=== PATIENT | male | born 1975 | race Caucasian/White ===

== ENCOUNTER 2016-11-07 05:55 | Emergency (ER) | payer SELFPAY ==
[~2016-11-07] VITALS: Ht 172.7 cm; Wt 61.5 kg
[~2016-11-07 05:55] MED LIST: FLEXERIL10 MG PO; NAPROXEN500 MG PO
[2016-11-07] MEDS ORDERED: PERCOCET 5/31 TABLET PO (09:27)
[2016-11-07 09:44] VITALS: BP 115/73
== END 2016-11-07 09:45 | disposition home or self-care (01) ==
LOC: EME 05:55
DX: S83.91XA Sprain of unspecified site of right knee, initial encounter (principal); X50.9XXA Other and unspecified overexertion or strenuous movements or postures, initial encounter; Z88.6 Allergy status to analgesic agent; Z88.0 Allergy status to penicillin
CPT/HCPCS: 73564; 99281; 99283; J1170

== ENCOUNTER 2016-11-11 15:53 | Emergency (ER) | payer SELFPAY ==
[~2016-11-11] VITALS: Ht 172.7 cm; Wt 58.5 kg
[~2016-11-11 15:53] MED LIST changes: +PERCOCET 5/31 TABLET PO
[2016-11-11] MEDS ORDERED: PREDNISONE20 MG PO (18:24)
[2016-11-11 18:47] VITALS: BP 134/90
== END 2016-11-11 18:48 | disposition home or self-care (01) ==
LOC: EME 15:53
DX: M23.91 Unspecified internal derangement of right knee (principal); S83.421A Sprain of lateral collateral ligament of right knee, initial encounter; M76.51 Patellar tendinitis, right knee; F17.200 Nicotine dependence, unspecified, uncomplicated
CPT/HCPCS: 99281; 99284; J7512

== ENCOUNTER 2016-12-17 11:26 | Emergency (ER) | payer SELFPAY ==
[~2016-12-17] VITALS: Ht 172.7 cm; Wt 61.2 kg
[~2016-12-17 11:26] MED LIST changes: +PREDNISONE20 MG PO
[2016-12-17] MEDS ORDERED: PERCOCET 5/31 TABLET PO (12:55)
[2016-12-17] MEDS ORDERED: FLEXERIL10 MG PO (12:55)
[2016-12-17 13:09] VITALS: BP 127/92
== END 2016-12-17 13:10 | disposition home or self-care (01) ==
LOC: EME 11:26
DX: S43.402A Unspecified sprain of left shoulder joint, initial encounter (principal); X50.9XXA Other and unspecified overexertion or strenuous movements or postures, initial encounter; Z88.6 Allergy status to analgesic agent; Z88.0 Allergy status to penicillin
CPT/HCPCS: 73030; 99281; 99283

== ENCOUNTER 2017-05-28 21:27 | Emergency (ER) | payer OTHER ==
[~2017-05-28] VITALS: Ht 172.7 cm; Wt 60.9 kg
[2017-05-28] MEDS ORDERED: NORCO 5/3251 TABLET PO (23:16)
[2017-05-28 23:33] VITALS: BP 158/93
== END 2017-05-28 23:40 | disposition home or self-care (01) ==
LOC: EME 21:27
DX: S22.31XA Fracture of one rib, right side, initial encounter for closed fracture (principal); W11.XXXA Fall on and from ladder, initial encounter; Z72.0 Tobacco use
CPT/HCPCS: 71020; 99281; 99283

== ENCOUNTER 2017-06-06 19:15 | Emergency (ER) | payer OTHER ==
[~2017-06-06] VITALS: Ht 172.7 cm; Wt 62.5 kg
[~2017-06-06 19:15] MED LIST changes: +NORCO 5/3251 TABLET PO
[2017-06-06] MEDS ORDERED: NORCO 5/3251 TABLET PO (20:37)
[2017-06-06 20:51] VITALS: BP 151/88
== END 2017-06-06 21:10 | disposition home or self-care (01) ==
LOC: EXP 19:15 → EME 19:15 → EXP 21:10
DX: R07.89 Other chest pain (principal); M25.521 Pain in right elbow; F17.200 Nicotine dependence, unspecified, uncomplicated
CPT/HCPCS: 71020; 99281; 99284

== ENCOUNTER 2017-07-09 06:35 | Emergency (ER) | payer OTHER ==
[~2017-07-09] VITALS: Ht 172.7 cm; Wt 61.0 kg
[2017-07-09 06:47] VITALS: BP 144/95
== END 2017-07-09 09:20 | disposition home or self-care (01) ==
LOC: EME 06:35
PROC: 2W3CX1Z Immobilization of Right Lower Arm using Splint (ICD-10-PCS; principal; 2017-07-09)
DX: S67.21XA Crushing injury of right hand, initial encounter (principal); S60.221A Contusion of right hand, initial encounter; W20.8XXA Other cause of strike by thrown, projected or falling object, initial encounter; F17.210 Nicotine dependence, cigarettes, uncomplicated
CPT/HCPCS: 73130; 99281; 99284

== ENCOUNTER 2017-09-06 12:05 | Emergency (ER) | payer OTHER ==
[~2017-09-06] VITALS: Ht 172.7 cm; Wt 60.1 kg
[2017-09-06] MEDS ORDERED: INDOCIN50 MG PO (15:09)
[2017-09-06 15:18] VITALS: BP 114/92
== END 2017-09-06 15:18 | disposition home or self-care (01) ==
LOC: EME 12:05
DX: S46.002A Unspecified injury of muscle(s) and tendon(s) of the rotator cuff of left shoulder, initial encounter (principal); X50.9XXA Other and unspecified overexertion or strenuous movements or postures, initial encounter; M24.412 Recurrent dislocation, left shoulder; F17.200 Nicotine dependence, unspecified, uncomplicated
CPT/HCPCS: 73030; 99281; 99283

== ENCOUNTER 2017-12-17 15:56 | Emergency (ER) | payer BC ==
[~2017-12-17] VITALS: Ht 172.7 cm; Wt 58.4 kg
[~2017-12-17 15:56] MED LIST changes: +INDOCIN50 MG PO
[2017-12-17] MEDS ORDERED: PERCOCET 7.51 TABLET PO (20:30)
[2017-12-17 20:59] VITALS: BP 129/86
== END 2017-12-17 21:00 | disposition home or self-care (01) ==
LOC: EME 15:56
PROC: 2W39X1Z Immobilization of Left Upper Extremity using Splint (ICD-10-PCS; principal; 2017-12-17)
DX: S67.22XA Crushing injury of left hand, initial encounter (principal); W23.0XXA Caught, crushed, jammed, or pinched between moving objects, initial encounter; Z88.6 Allergy status to analgesic agent; Z88.0 Allergy status to penicillin
CPT/HCPCS: 73130; 99281; 99284; J2270

== ENCOUNTER 2017-12-21 13:00 | Emergency (ER) | payer SELFPAY ==
[~2017-12-21] VITALS: Ht 172.7 cm; Wt 54.1 kg
[~2017-12-21 13:00] MED LIST changes: +PERCOCET 7.51 TABLET PO
[2017-12-21] MEDS ORDERED: PERCOCET 7.51 TABLET PO (14:16)
[2017-12-21 14:33] VITALS: BP 138/82
== END 2017-12-21 14:33 | disposition home or self-care (01) ==
LOC: EME 13:00
DX: S60.222A Contusion of left hand, initial encounter (principal); W23.0XXA Caught, crushed, jammed, or pinched between moving objects, initial encounter; Z88.0 Allergy status to penicillin; Z88.6 Allergy status to analgesic agent
CPT/HCPCS: 99281; 99284

== ENCOUNTER 2017-12-26 11:35 | Emergency (ER) | payer OTHER ==
[~2017-12-26] VITALS: Ht 172.7 cm; Wt 55.7 kg
[2017-12-26] MEDS ORDERED: PERCOCET 5/31 TABLET PO (15:57)
[2017-12-26] MEDS ORDERED: VOLTAREN 1% GE100 GM TP (15:57)
[2017-12-26 16:20] VITALS: BP 135/74
== END 2017-12-26 16:29 | disposition home or self-care (01) ==
LOC: EME 11:35
DX: S60.222A Contusion of left hand, initial encounter (principal); M79.89 Other specified soft tissue disorders; W23.0XXA Caught, crushed, jammed, or pinched between moving objects, initial encounter; F17.200 Nicotine dependence, unspecified, uncomplicated; Z71.6 Tobacco abuse counseling; Z88.0 Allergy status to penicillin; Z88.6 Allergy status to analgesic agent
CPT/HCPCS: 73130; 99281; 99283

== ENCOUNTER 2018-06-06 15:16 | Emergency (ER) | payer OTHER ==
[~2018-06-06] VITALS: Ht 172.7 cm; Wt 56.6 kg
[~2018-06-06 15:16] MED LIST changes: +VOLTAREN 1% GE100 GM TP
[2018-06-06 16:17] LABS: HEMATOCRIT 48.4 % (38.0-50.0); HEMOGLOBIN 16.6 G/DL (12.5-16.6); MCHC 34.3 G/DL (30.0-36.0); MCV 90.3 FL (86-99); PLATELET COUNT 257 K/uL (156-360); RBC DIS.WIDTH-CV 13.2 % (11.8-14.6); RED BLOOD COUNT 5.36 M/uL (4.00-5.50)
[2018-06-06 16:24] LABS: CHLORIDE 103 mEq/L (99-109); POTASSIUM 4.1 mEq/L (3.7-5.4); SODIUM 138 mEq/L (136-147)
[2018-06-06 16:26] LABS: GLUCOSE 92 mg/dL (70-99)
[2018-06-06 16:30] LABS: CREATININE 0.9 mg/dL (0.6-1.3); GFR ESTIMATE (CALCULATED) > 59 mL/min/ (58.99-99999)
[2018-06-06 16:31] LABS: UREA NITROGEN (BUN) 14 mg/dL (9-23)
[2018-06-06 19:30] LABS: TROP-I INTERPRETATION NEGATIVE; TROPONIN-I < 0.01 ng/mL (0.0-0.30)
[2018-06-06] MEDS ORDERED: DILAUDID4 MG PO (20:20)
[2018-06-06 20:49] VITALS: BP 126/94
[2018-06-07 08:57] LABS: TREPONEMA ANTIBODY NEGATIVE (NEGATIVE)
== END 2018-06-06 20:50 | disposition home or self-care (01) ==
LOC: EME 15:16
PROVIDERS: Emergency Medicine; Physician Assistant
DX: M54.2 Cervicalgia (principal); R42 Dizziness and giddiness; Z88.0 Allergy status to penicillin; Z88.5 Allergy status to narcotic agent; Z88.6 Allergy status to analgesic agent; Z91.030 Bee allergy status
CPT/HCPCS: 70450; 70551; 80048; 82607; 84425 90; 84484; 85027; 86780; 93005; 99281; 99284; G0480; J2270

== ENCOUNTER 2018-06-11 14:14 | Emergency (ER) | payer OTHER ==
[~2018-06-11] VITALS: Ht 172.7 cm; Wt 55.7 kg
[~2018-06-11 14:14] MED LIST changes: +DILAUDID4 MG PO
[2018-06-11] MEDS ORDERED: MEDROL DOSEPAK4 MG PO (17:04)
[2018-06-11] MEDS ORDERED: VALIUM5 MG PO (17:04)
[2018-06-11 17:10] VITALS: BP 127/85
== END 2018-06-11 17:10 | disposition home or self-care (01) ==
LOC: EME 14:14
DX: M54.2 Cervicalgia (principal); M47.892 Other spondylosis, cervical region; M54.12 Radiculopathy, cervical region; M25.78 Osteophyte, vertebrae; Z91.81 History of falling; Z88.6 Allergy status to analgesic agent; F17.200 Nicotine dependence, unspecified, uncomplicated
CPT/HCPCS: 72125; 99281; 99283; J3010